=== PATIENT | male | born 1965 | race Caucasian/White ===

== ENCOUNTER → 2018-02-19 | Outpatient (CLI) | payer OTHER | LOC: COL.RAD 02-16 08:45 | DX: M79.661 Pain in right lower leg (principal); Z98.1 Arthrodesis status | CPT/HCPCS: A9503 ==

== ENCOUNTER 2018-08-20 08:30 | Outpatient (RCR) | payer OTHER | END 2018-09-26 | disposition home or self-care (01) | LOC: MKS.ESL.PT | DX: Z47.89 Encounter for other orthopedic aftercare (principal); Z98.1 Arthrodesis status; Z96.7 Presence of other bone and tendon implants ==

== ENCOUNTER → 2019-07-31 | Outpatient (CLI) | payer OTHER | LOC: MHCPAIN 09:09 | DX: G89.29 Other chronic pain (principal); M47.817 Spondylosis without myelopathy or radiculopathy, lumbosacral region; M54.16 Radiculopathy, lumbar region; M53.3 Sacrococcygeal disorders, not elsewhere classified | CPT/HCPCS: G0463 ==

== ENCOUNTER → 2019-08-01 | Outpatient (CLI) | payer OTHER | LOC: MHCPAIN 10:11 | DX: M47.817 Spondylosis without myelopathy or radiculopathy, lumbosacral region (principal); M54.16 Radiculopathy, lumbar region | CPT/HCPCS: J1100; Q9967 ==

== ENCOUNTER → 2019-10-29 | Outpatient (CLI) | payer OTHER | LOC: MHCPAIN 07:36 | DX: M47.817 Spondylosis without myelopathy or radiculopathy, lumbosacral region (principal); M53.3 Sacrococcygeal disorders, not elsewhere classified | CPT/HCPCS: G0463 ==

== ENCOUNTER → 2019-10-31 | Outpatient (CLI) | payer OTHER | LOC: MHCPAIN 08:06 | DX: M12.88 Other specific arthropathies, not elsewhere classified, other specified site (principal); M54.5 Low back pain ==

== ENCOUNTER → 2019-11-13 | Outpatient (CLI) | payer OTHER | LOC: MHCPAIN 08:09 | DX: M47.817 Spondylosis without myelopathy or radiculopathy, lumbosacral region (principal); M53.3 Sacrococcygeal disorders, not elsewhere classified | CPT/HCPCS: G0463 ==

== ENCOUNTER → 2019-11-21 | Outpatient (CLI) | payer OTHER | LOC: MHCPAIN 08:46 | DX: M54.5 Low back pain (principal) ==

== ENCOUNTER → 2020-03-05 | Outpatient (CLI) | payer OTHER | LOC: MHCPAIN 08:23 | DX: G89.29 Other chronic pain (principal); M54.5 Low back pain; M53.3 Sacrococcygeal disorders, not elsewhere classified | CPT/HCPCS: J2250; J3010 ==